=== PATIENT | female | born 1990 | race African-American/Black ===

== ENCOUNTER 2016-09-20 12:53 | Emergency (ER) | payer SELFPAY ==
[~2016-09-20] VITALS: Ht 170.2 cm; Wt 87.0 kg
[~2016-09-20 12:53] MED LIST: CELE40TA PO; CIPR500T4 PO
[2016-09-20 12:56] VITALS: BP 113/71; PULSE 82; RESP 20; TEMP 98.9; O2SAT 100
--- NOTE | 2016-09-20 13:33 | PD ---
Physical Exam Date Seen by Provider: September 20, 2016 Time Seen by Provider: 13:30 Narrative 26 y/o female with 2 day Hx. vaginal burning and discharge. No fever or urinary symptoms. C/O Lower Abd Cramps 12/16. V/S Stable Awaiting Bed Placement. Data Data Last Documented VS Vital Signs Date Time Temp Pulse Resp B/P Pulse Ox O2 Delivery O2 Flow Rate FiO2 09/20/16 12:56 98.9 82 20 113/71 100 Room Air [facility] Medical Record Reviewed: Yes Supervised Visit with LUZ: Yes Condition: Stable Billy Wiley September 20, 2016 13:33
[2016-09-21] MEDS ORDERED: DIFL150T PO (06:29)
[2016-09-21] MEDS ORDERED: DOXY100C PO (06:29)
== END 2016-09-20 16:10 | disposition left against medical advice (07) ==
LOC: NETRI 12:53
DX: N89.8 Other specified noninflammatory disorders of vagina (principal); Z53.21 Procedure and treatment not carried out due to patient leaving prior to being seen by health care provider
CPT/HCPCS: 99281; 99282

== ENCOUNTER 2016-09-21 04:52 | Emergency (ER) | payer SELFPAY ==
[~2016-09-21] VITALS: Ht 170.2 cm; Wt 80.0 kg
[2016-09-21 04:54] VITALS: BP 125/89; PULSE 75; RESP 16; TEMP 98.5; O2SAT 100
--- NOTE | 2016-09-21 05:53 | PD ---
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 She reports that she has vaginal itching and burning on the outside of her vagina with urinating. She reports that this morning she began to have pelvic pain and a thick discharge that is white to yellow in color. She reports that she is concerned that her boyfriend may have cheated on her. The patient denies any recent fevers, cough, congestion, neck pain, chest pain, shortness of breath, vomiting, diarrhea, urinary symptoms, or neurologic symptoms. LMP: 08/23/2016. [facility] Past Medical History Narrative Medical The patient's past medical history is reportedly significant for depression. Depression: Yes Diminished Hearing: No Tetanus Vaccination: Unknown Influenza Vaccination: No ?: Unknown LMP: 08/23/16 : 1 Para: 1 Past Surgical History Narrative Surgical The patient's past surgical history is significant for none. Surgical History: No Previous Surgery Social History Alcohol Use: No Tobacco Use: Yes (1 CIG) Substance Use: Yes (marijuana) Allergies-Medications (Allergen,Severity, Reaction): Coded Allergies: No Known Allergies (Verified , 09/20/16) Reported Meds & Prescriptions Reported Meds & Active Scripts Active Diflucan (Fluconazole) 150 Mg Tab 150 Mg PO ONCE Doxycycline Hyclate 100 Mg Cap 100 Mg PO BID Review of Systems Except as stated in HPI: all other systems reviewed are Neg General / Constitutional: No: Fever Eyes: No: Visual changes HENT: No: Headaches Cardiovascular: No: Chest Pain or Discomfort Respiratory: No: Shortness of Breath Gastrointestinal: Positive: Abdominal Pain, No: Nausea, Vomiting, Diarrhea, Changes in Bowel Habits, Indigestion, Loss of Appetite Genitourinary: Positive: Dysuria, Discharge, No: Urgency, Frequency, Flank Pain Musculoskeletal: No: Pain Skin: No Rash Neurologic: No: Weakness Psychiatric: No: Depression Endocrine: No: Polydipsia Hematologic/Lymphatic: No: Easy Bruising Physical Exam Narrative General: The patient is a well-developed well-nourished female in no acute distress. Head and Neck exam: Head is normocephalic atraumatic. Eyes: EOMI, pupils are equal round and reactive to light. Nose: Midline septum with pink mucous membranes Mouth: Dentition unremarkable. Moist mucus membranes. Posterior oropharynx is not erythematous. No tonsillar hypertrophy. Uvula midline. Airway patent. Neck: No palpable lymphadenopathy. No nuchal rigidity. No thyromegaly. Cardiovascular: Regular rate and rhythm without murmurs, gallops, or rubs. Lungs: Clear to auscultation bilaterally. No wheezes, rhonchi, or rales. Abdomen: Soft, without tenderness on palpation on examination of all 4 quadrants of the abdomen. No guarding, rebound, or rigidity. Normal bowel sounds are audible. No tenderness on palpation of McBurney's point. Extremities: No clubbing, cyanosis, or edema. Back: No costovertebral angle tenderness to palpation. Skin Exam: No rash noted. Intact skin that is warm and dry. Gynecologic exam: The patient was placed in the dorsal lithotomy position. Her external genitalia were examined. She had no evidence of rash or lesions. The speculum was placed into her vagina and the cervix was identified. She had a thick white to yellow discharge noted. No cervical friability. On Bimanual exam: she has no cervical motion tenderness. No adnexal tenderness or prominence noted on palpation. No uterine tenderness or enlargement noted on palpation. Data Data Last Documented VS Vital Signs Date Time Temp Pulse Resp B/P Pulse Ox O2 Delivery O2 Flow Rate FiO2 09/21/16 04:56 16 09/21/16 04:54 98.5 75 125/89 100 Orders Gc And Chlamydia Pcr (09/21/16 05:20) Wet Prep Profile (09/21/16 05:20) Urinalysis - C+S If Indicated (09/21/16 05:20) Ed Urine Pregnancytest Poc (09/21/16 05:20) Azithromycin Powd Pack (Zithromax Powd P (09/21/16 06:15) Ceftriaxone Inj (Rocephin Inj) (09/21/16 06:15) Lidocaine 1% Inj (50 Ml) (Xylocaine 1% I (09/21/16 06:15) Labs Laboratory Tests Test 09/21/16 09/21/16 05:15 05:30 Urine Color YELLOW Urine Turbidity HAZY Urine pH 6.0 Urine Specific [place] 1.021 Urine Protein TRACE mg/dL Urine Glucose (UA) NEG mg/dL Urine Ketones NEG mg/dL Urine Occult Blood NEG Urine Nitrite NEG Urine Bilirubin NEG Urine Urobilinogen LESS THAN 2.0 MG/DL Urine Leukocyte Esterase LARGE Urine RBC 1 /hpf Urine WBC 2 /hpf Urine Squamous Epithelial 3 /hpf Cells Urine Amorphous Sediment RARE Urine Bacteria RARE /hpf Urine Hyaline Casts 1 /lpf Urine Mucus FEW /lpf Urine Yeast (Budding) RARE Microscopic Urinalysis Comment CULT NOT INDICATED Clue Cells (Wet Prep) NONE SEEN Vaginal Trichomonas (Wet Prep) NONE SEEN Vaginal Yeast (Wet Prep) PRESENT MDM Medical Decision Making Medical Screen Exam Complete: Yes Emergency Medical Condition: Yes Medical Record Reviewed: Yes Differential Diagnosis Gonorrhea, versus chlamydia, versus yeast vaginitis, versus trichomoniasis, versus PID, versus urinary tract infection. Narrative Course During the course of the patients emergency department visit, the patients history, examination, and differential diagnosis were reviewed with the patient. The patient had IV access obtained and blood work sent for analysis. The patient was placed on a manager monitoring with oximetry and blood pressure monitoring. The urine was sent for analysis. Wet prep and culture were sent. Bedside test was done and reportedly negative. The patient was initially provided Rocephin 250 IM, Zithromax 1 g by mouth. The patients laboratory studies were reviewed and remarkable for a wet prep that is positive for yeast. The patient will be discharged home with a prescription for doxycycline and Diflucan. The patient is resting comfortably and feels better, is alert and in no distress. The patients results and examination findings were discussed with the patient. The repeat examination is unremarkable and benign. The history, exam, diagnostic testing, and current condition do not suggest any significant pathology to warrant further testing, continued ED treatment, admission, or surgical evaluation at this point. The vital signs have been stable. The patient does not have uncontrollable pain, intractable vomiting, or other significant symptoms. The patient's condition is stable and appropriate for discharge. The patient will pursue further outpatient evaluation with a primary care physician or other designated or consulting physician as indicated in the discharge instructions. The patient expressed understanding and was agreeable with this plan. Diagnosis Primary Impression: Pelvic infection in female Additional Impression: Yeast vaginitis Referrals: [facility] Install[facility] 2 days Patient Instructions: General Instructions, Vaginitis (ED), Vulvovaginal Candidiasis (ED) Med/Other Pt SpecificInfo: Prescription(s) given Scripts Fluconazole (Diflucan)150 Mg Ali647 Mg PO ONCE #1 TAB Ref 0 Prov:Georgia Arizmendi MD 09/21/16 Doxycycline Hyclate 100 Mg Hww448 Mg PO BID #20 CAP Ref 0 Prov:Georgia Arizmendi MD 09/21/16 Disposition: 01 DISCHARGE HOME Condition: Stable Georgia Arizmendi MD September 21, 2016 05:53
[2016-09-21 06:01] LABS: BACTERIA, URINE RARE /hpf; BLOOD, URINE NEG (NEG); COMMENT (UR) CULT NOT INDICATED; CULTURE IF INDICATED CULT NOT INDICATED; GLUCOSE,URINE NEG (NEG); HYALINE CAST, URINE 1 /lpf (RARE); KETONE, URINE NEG (NEG); MUCUS URINE FEW /lpf (OCC); NITRITE,URINE NEG (NEG); SQUAMOUS EPITHELIAL CELL URINE 3 /hpf (0-5); URINE COLOR YELLOW (YELLW/STRAW)
[2016-09-21] MEDS ORDERED: LIDOCAINE HCL 1% 50 ML VIAL IM ONE (06:15)
[2016-09-21] MEDS ORDERED: cefTRIAXone 250 MG VIAL IM ONE (06:15)
[2016-09-21] MEDS ORDERED: AZITHROMYCIN PWD FOR SUSP 1 GM PACKET PO ONE (06:15)
[2016-09-21] MEDS ORDERED: DOXY100C PO (06:29)
[2016-09-21] MEDS ORDERED: DIFL150T PO (06:29)
[2016-09-21 07:28] LABS: CHLAMYDIA PCR NOT DETECTED (NOT DETECT); NEISSERIA PCR NOT DETECTED (NOT DETECT)
== END 2016-09-21 06:49 | disposition home or self-care (01) ==
LOC: NEPE 04:52
DX: N73.9 Female pelvic inflammatory disease, unspecified (principal); B37.3 Candidiasis of vulva and vagina; R30.0 Dysuria; F17.210 Nicotine dependence, cigarettes, uncomplicated
CPT/HCPCS: 81001; 84703; 87210; 87491; 87591; 96372; 99283; J0696

== ENCOUNTER 2016-10-16 02:24 | Emergency (ER) | payer SELFPAY ==
[~2016-10-16 02:24] MED LIST changes: -CELE40TA PO; -CIPR500T4 PO; +DIFL150T PO; +DOXY100C PO
[2016-10-16 02:28] VITALS: BP 136/90; PULSE 83; RESP 16; TEMP 97.9; O2SAT 98
[2016-10-16] MEDS ORDERED: DIFL150T PO (04:01)
--- NOTE | 2016-10-16 04:01 | PD ---
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 Patient states she was seen and evaluated several weeks ago, she was prescribed Diflucan as well as antibiotics. She states that discharge and irritation did not resolve. She denies any pelvic pain, abdominal pain, fevers, chills. PFSH Past Medical History Medical History: Denies Significant Hx Depression: Yes Diminished Hearing: No Tetanus Vaccination: Unknown Influenza Vaccination: No ?: Unknown : 1 Para: 1 Past Surgical History Surgical History: No Previous Surgery Social History Alcohol Use: No Tobacco Use: Yes (1 CIG) Substance Use: Yes (marijuana) Allergies-Medications (Allergen,Severity, Reaction): Coded Allergies: No Known Allergies (Verified , 10/16/16) Reported Meds & Prescriptions Reported Meds & Active Scripts Active Doxycycline Hyclate 100 Mg Cap 100 Mg PO BID Review of Systems Except as stated in HPI: all other systems reviewed are Neg Gastrointestinal: No: Abdominal Pain Genitourinary: Positive: Discharge, No: Dysuria, Pelvic Pain, Flank Pain Physical Exam Narrative GENERAL: Well-nourished, well-developed patient. SKIN: Focused skin assessment warm/dry. HEAD: Normocephalic. EYES: No scleral icterus. No injection or drainage. NECK: Supple, trachea midline. No JVD or lymphadenopathy. CARDIOVASCULAR: Regular rate and rhythm without murmurs, gallops, or rubs. RESPIRATORY: Breath sounds equal bilaterally. No accessory muscle use. GASTROINTESTINAL: Abdomen soft, non-tender, nondistended. MUSCULOSKELETAL: No cyanosis, or edema. BACK: Nontender without obvious deformity. No CVA tenderness. Data Data Last Documented VS Vital Signs Date Time Temp Pulse Resp B/P Pulse Ox O2 Delivery O2 Flow Rate FiO2 10/16/16 03:02 16 10/16/16 02:28 97.9 83 136/90 98 Room Air MDM Medical Decision Making Medical Screen Exam Complete: Yes Emergency Medical Condition: Yes Medical Record Reviewed: Yes Interpretation(s) Vital Signs Date Time Temp Pulse Resp B/P Pulse Ox O2 Delivery O2 Flow Rate FiO2 10/16/16 03:02 16 10/16/16 02:28 97.9 83 16 136/90 98 Room Air Differential Diagnosis Bacterial vaginosis versus yeast infection versus STD versus UTI versus other Narrative Course Patient is a 26-year-old female presenting to the emergency department for evaluation of vaginal discharge and irritation. Patient reported discharge is white. She has no other complaints at this time and did not want a pelvic exam , she states that she knows her body. She feels as if the course of antibiotics she took caused yeast infection to return or not completely resolve. Upon review of medical records., Patient's wet prep was positive for yeast. Patient will be prescribed Diflucan, she is encouraged to follow up with [facility]. She is advised to return to emergency department immediately for any new or worsening symptoms. Patient verbalizes understanding of these instructions. Patient stable for discharge. Diagnosis Primary Impression: Yeast vaginitis Referrals: [facility] [employer]ing Telegram Performer [facility] Patient Instructions: General Instructions, Vulvovaginal Candidiasis (GEN) Additional Instructions: Follow-up with [facility] or at the [facility] or with [facility] Take medications as directed Return to the emergency department immediately for any new or worsening symptoms Med/Other Pt SpecificInfo: Prescription(s) given Scripts Fluconazole (Diflucan)150 Mg [id number] Mg PO ONCE #1 TAB Ref 1 Prov:Bree Alfredo 10/16/16 Disposition: 01 DISCHARGE HOME Condition: Stable Bree Alfredo Oct 16, 2016 04:01
== END 2016-10-16 04:25 | disposition home or self-care (01) ==
LOC: NEPD 02:24
DX: B37.3 Candidiasis of vulva and vagina (principal); F12.90 Cannabis use, unspecified, uncomplicated; Z72.0 Tobacco use
CPT/HCPCS: 99283